=== PATIENT | female | born 1935 | race Asian ===

== ENCOUNTER 2018-09-18 13:58 | Inpatient (IN) | payer OTHER, MEDICARE ==
[2018-09-18] VITALS (21 sets, daily range): BP systolic 87–123; BP diastolic 43–64
[~2018-09-18] VITALS: Ht 157.5 cm; Wt 39.5 kg
--- NOTE | 2018-09-18 14:00 | NUR ---
[id number] FROM [facility], HYPOTENSION 93/65, [place] NS BOLUS GIVEN AT HD, TO ER BED 5, HOOKED TO MONITOR, CHANGED TO GOWN, AWAITING MD HOUSTON
--- NOTE | 2018-09-18 14:05 | NUR ---
DR CAPPS AT BEDSIDE
[2018-09-18] MEDS ORDERED: IV NS 0.9% 500 ML BAG IV ONE (14:30)
[2018-09-18 14:35] LABS: BASOPHILS % (AUTO) 0.2 % (0.0-2.0); EOSINOPHILS % (AUTO) 0.5 % (0.0-6.0); LYMPHOCYTES # (AUTO) 1.3 /CMM (0.8-4.8); LYMPHOCYTES % (AUTO) 7.7 % (20.0-44.0); MEAN CORPUSCULAR HGB CONC 32 g/dl (31.0-36.0); MEAN CORPUSCULAR VOLUME 80 fL (82-100); MONOCYTES # (AUTO) 1.1 /CMM (0.1-1.30); MONOCYTES % (AUTO) 6.6 % (2.0-12.0); NEUTROPHILS # (AUTO) 14.7 /CMM (1.8-8.9); PLATELET COUNT (AUTO) 195 /CMM (150-450); RED BLOOD CELL COUNT(AUTO) 1.49 MIL/uL (4.0-5.2); WHITE BLOOD COUNT (AUTO) 17.3 K/uL (4.3-11.0)
[2018-09-18 14:37] LABS: HEMATOCRIT 12 % (33-45); HEMOGLOBIN 3.8 g/dL (11.5-14.8)
[2018-09-18] MEDS ORDERED: LINA5TAB GT (14:38)
[2018-09-18] MEDS ORDERED: LORA-259 GT ×2 (14:38)
[2018-09-18] MEDS ORDERED: BISA10SU8 RC (14:38)
[2018-09-18] MEDS ORDERED: ACET-868 GT (14:38)
[2018-09-18] MEDS ORDERED: INSU100V7 SQ (14:38)
[2018-09-18] MEDS ORDERED: FERR300L GT (14:38)
[2018-09-18] MEDS ORDERED: FOLI0.8T23 GT (14:38)
[2018-09-18] MEDS ORDERED: METO-295 GT (14:38)
[2018-09-18] MEDS ORDERED: FOLI1TAB16 GT (14:38)
[2018-09-18] MEDS ORDERED: HYDR-4076 GT (14:38)
[2018-09-18] MEDS ORDERED: VALP250C3 GT (14:38)
[2018-09-18] MEDS ORDERED: METO25TA20 GT (14:38)
[2018-09-18] MEDS ORDERED: LANS30CA54 GT (14:38)
[2018-09-18] MEDS ORDERED: VIT500LI GT (14:38)
[2018-09-18] MEDS ORDERED: AMLO5TAB4 GT (14:38)
[2018-09-18] MEDS ORDERED: OLAN5TAB3 GT (14:38)
[2018-09-18] MEDS ORDERED: ACET-2605 GT ×2 (14:38)
[2018-09-18] MEDS ORDERED: NUT.237L67 GT (14:38)
[2018-09-18] MEDS ORDERED: GUAI5SYR GT (14:38)
[2018-09-18] MEDS ORDERED: BLOO-668 IN (14:38)
[2018-09-18] MEDS ORDERED: ONDA4TAB5 GT (14:38)
[2018-09-18] MEDS ORDERED: INSU100V11 SQ (14:38)
[2018-09-18] MEDS ORDERED: SEVE0.8P GT (14:38)
[2018-09-18] MEDS ORDERED: AMIN30LI27 GT (14:38)
[2018-09-18] MEDS ORDERED: DOCU50LI GT (14:38)
[2018-09-18] MEDS ORDERED: IPRA3AMP23 IH (14:38)
[2018-09-18] MEDS ORDERED: ASPI-1169 GT (14:38)
[2018-09-18 14:40] LABS: CALCIUM, SERUM 8.1 mg/dL (8.5-10.1); CARBON DIOXIDE 27 mmol/L (21-32); CHLORIDE 98 mmol/L (98-107); CREATININE 3.1 mg/dL (0.6-1.3); GLUCOSE 135 mg/dL (74-106); POTASSIUM 3.5 mmol/L (3.5-5.1); SODIUM SERUM 133 mmol/L (136-145); UREA NITROGEN, BLOOD 47 mg/dL (7-18)
--- NOTE | 2018-09-18 14:45 | NUR ---
DR DUARTE'S OFFICE WAS CALLED FOR A DR TO DR THACKER
[2018-09-18 14:46] LABS: ALANINE AMINOTRANSFERASE 23 U/L (12-78); ALKALINE PHOSPHATASE 88 U/L (46-116); ASPARTATE AMINOTRANSFERASE 42 U/L (15-37); BILIRUBIN,DIRECT 0.3 mg/dL (0.0-0.2); BILIRUBIN,TOTAL 0.8 mg/dL (0.2-1.0); TOTAL PROTEIN, SERUM 6.4 g/dL (6.4-8.2)
--- NOTE | 2018-09-18 14:48 | NUR ---
URINE SAMPLE SENT TO LAB
--- NOTE | 2018-09-18 14:51 | NUR ---
HOUSE SUP CALLED FOR JAMES BED.
[2018-09-18 15:00] LABS: APPEARANCE,URINE Cloudy (CLEAR); BILIRUBIN,URINE MODERATE (NEGATIVE); BLOOD, URINE Negative Ery/uL (NEGATIVE); KETONES,URINE Trace (NEGATIVE); LEUKOCYTE ESTERASE ,URINE Negative (NEGATIVE); NITRITE, URINE Negative (NEGATIVE); PROTEIN,URINE >=300 mg/dl (NEGATIVE); UGLUCOSE Negative (NEGATIVE); UROBILINOGEN,URINE 0.2 EU/dL (0.2)
[2018-09-18 15:01] LABS: COLOR,URINE Dark Yellow (YELLOW)
[2018-09-18 15:07] LABS: BACTERIA,URINE None seen /HPF (None Seen); HYALINE CASTS, URINE 0-1 /LPF (None Seen); SQUAMOUS EPITHELIAL CELL,UR Few /HPF (None Seen); URINE AMORPHOUS URATE Few /HPF (None Seen); WBC,URINE 0-2 /HPF (0-3)
--- NOTE | 2018-09-18 15:20 | NUR ---
ICU BED GIVEN 260
--- NOTE | 2018-09-18 15:21 | NUR ---
SPOKE TO DAUGHTER ZANE OROSCO AND AGREED VERBALLY FOR BLOOD TRANSFUSION FOR THE PATIENT, WILL COME INTO THE HOSPITAL IN ABOUT AN HOUR. BLOOD TRANSFUSION FORMS SIGNED BY DR CAPPS AND ATTACHED TO CHART.
--- NOTE | 2018-09-18 15:21 | NUR ---
ZANE OROSCO (daughter) [phone]
--- NOTE | 2018-09-18 15:28 | NUR ---
REPORT GIVEN TO ROSA GREEN OF ICU UNIT FOR LINNEA
--- NOTE | 2018-09-18 15:45 | NUR ---
RN NOTES RECEIVED PT FROM ED, IN ROOM 260 ICU STATUS , PT IS ALERT/ CONFUSED, SPEAKS TAGALOG ,ON RA RESPIRATION EVEN AND UNLABORED, O2 SAT 100%, NO SOB NOTED, ON TELE SR HR IN 90'S , R HAND IV SITE G 22 AND L UPPER CHEST HD CATH SITE CLEAN, DRY AND INTACT. ABDOMINAL TUBE INTACT, SITE CLEAN, DRY , MULTIPLIES BRUISING NOTED TO PJ UPPER AND LOWER EXTRIMITES , KEPT CLEAN AND DRY , SR UP x3, CALL LIGHT WITHIN EASY REACH, BED LOCKED AND IN LOWEST POSITION, CONTINUE TO MONITOR .
--- NOTE | 2018-09-18 16:00 | NUR ---
RN NOTES DR HARVEY WILL SEE PT SOON PER ER REPORT
[2018-09-18 17:10] LABS: BAND % (MANUAL) 4 % (0.0-5.0); LYMPHOCYTES % (MANUAL) 8 % (16-48); MONOCYTES % (MANUAL) 9 % (0-11.0); NEUTROPHILS % (MANUAL) 79 (42-76)
[2018-09-18] MEDS ORDERED: FEE PK DOSING 1 MIN EA MC ONE (18:00)
--- NOTE | 2018-09-18 18:00 | NUR ---
RN NOTES NO ADMISSION ORDER YET, DR Ebony HARVEY NOTIFED.
--- NOTE | 2018-09-18 18:06 | NUR ---
RN NOTES BLOOD IS NOT READY PER BLOOD BANK , PT NEEDS SECOND TYPE AND CROSS DRAWING .
--- NOTE | 2018-09-18 18:30 | NUR ---
RN NOTES DR DUARTE ON THE FLOOR SEEING PT
--- NOTE | 2018-09-18 18:43 | NUR ---
RN NOTES FIRST UNIT OF PRBC STARTED , VSS STABLE , CONTINUE TO MONITOR.
[2018-09-18] MEDS ORDERED: BLOOD SUGAR DIAGNOSTIC 1 EACH STRIP IN SCH (19:00)
[2018-09-18] MEDS ORDERED: IV D5/0.45 NACL 1,000 ML IV SCH (19:00)
[2018-09-18] MEDS ORDERED: ONDANSETRON HCL/PF 4 MG/2 ML VIAL IV PRN (19:00)
[2018-09-18] MEDS: PANTOPRAZOLE 40 MG VIAL IV SCH ×2 (19:28→21:00)
[2018-09-18] MEDS ORDERED: VANCOMYCIN 1 GM in IV NS 0.9% 250 ML IV ONE (20:00)
[2018-09-18] MEDS ORDERED: NOREPINEPHRINE 16 MG in IV D5W 500 ML IV PRN (20:00)
--- NOTE | 2018-09-18 20:00 | NUR ---
Received patient resting verbally responsive but confused not following commands.Bilateral soft wrist restraints in place for safety.Respiration even and unlabored.SPO2 100% on RA.SR. GT clamped.NPO status.IV Hydration infusing to MOHAN MIDLINE.Site intact.Left upper chest Nam Cath intact.Per daughter at bedside patient still urinate diaper in place.Patient with low H/H to receive 2 units PRBC,First unit infusing.Turned and repositioned.
[2018-09-18] MEDS: CEFEPIME 1 GM in IV D5W 50 ML IV SCH (20:03)
[2018-09-18] MEDS: BLOOD SUGAR DIAGNOSTIC 1 EACH STRIP IN SCH (23:56)
[2018-09-19] VITALS (58 sets, daily range): BP systolic 111–155; BP diastolic 46–114
--- NOTE | 2018-09-19 01:00 | NUR ---
Patient H/H 3.8/12 .Two Units PRBC transfused without adverse reaction.VS stable.Patient awake but confused.Safety precaution maintained.Call light within easy reach.Bed alarm on.Continue monitoring.
[2018-09-19 04:58] LABS: BASOPHILS % (AUTO) 0.3 % (0.0-2.0); EOSINOPHILS % (AUTO) 0.3 % (0.0-6.0); LYMPHOCYTES # (AUTO) 0.9 /CMM (0.8-4.8); LYMPHOCYTES % (AUTO) 7.8 % (20.0-44.0); MEAN CORPUSCULAR HGB CONC 34 g/dl (31.0-36.0); MEAN CORPUSCULAR VOLUME 78 fL (82-100); MONOCYTES # (AUTO) 0.8 /CMM (0.1-1.30); MONOCYTES % (AUTO) 6.8 % (2.0-12.0); NEUTROPHILS # (AUTO) 9.4 /CMM (1.8-8.9); NEUTROPHILS % (AUTO) 84.8 % (43.0-81.0); PLATELET COUNT (AUTO) 180 /CMM (150-450); RED BLOOD CELL COUNT(AUTO) 2.33 MIL/uL (4.0-5.2); WHITE BLOOD COUNT (AUTO) 11.1 K/uL (4.3-11.0)
[2018-09-19 05:22] LABS: ALANINE AMINOTRANSFERASE 27 U/L (12-78); ALBUMIN 2.8 g/dL (3.4-5.0); ALKALINE PHOSPHATASE 82 U/L (46-116); ASPARTATE AMINOTRANSFERASE 41 U/L (15-37); BILIRUBIN,TOTAL 1.5 mg/dL (0.2-1.0); CALCIUM, SERUM 7.7 mg/dL (8.5-10.1); CARBON DIOXIDE 25 mmol/L (21-32); CHLORIDE 98 mmol/L (98-107); CREATININE 3.3 mg/dL (0.6-1.3); GLUCOSE 124 mg/dL (74-106); POTASSIUM 3.4 mmol/L (3.5-5.1); SODIUM SERUM 134 mmol/L (136-145); TOTAL PROTEIN, SERUM 6.1 g/dL (6.4-8.2); UREA NITROGEN, BLOOD 52 mg/dL (7-18)
[2018-09-19 05:30] LABS: HEMATOCRIT 18 % (33-45); HEMOGLOBIN 6.1 g/dL (11.5-14.8)
[2018-09-19 05:51] LABS: LYMPHOCYTES % (MANUAL) 6 % (16-48); MONOCYTES % (MANUAL) 6 % (0-11.0); NEUTROPHILS % (MANUAL) 88 (42-76)
--- NOTE | 2018-09-19 07:00 | NUR ---
Patient resting in no acute distress.Latest H/H 6.07/28 relayed to Minerva Schultz with orders received to transfuse 2 more units to PRBC.Report given to day shift RN for continuity of care.
--- NOTE | 2018-09-19 07:05 | NUR ---
RN NOTES RECEIVED PT ON BED , ALERT/ CONFUSED, ON RA , RESPIRATION EVEN AND UNLABORED , O2 ZYP138%, NO SOB NOTED, L UPPER CHEST HD CATH AND R UPPER ARM MIDLINE SITE CLEAN, DRY AND INTACT, D51/2NS @30CC/HR RUNNING , SR UP x3, CALL LIGHT WITHIN EASY REACH, BED LOCKED AND IN LOWEST POSITION , CONTINUE TO MONITOR
--- NOTE | 2018-09-19 07:51 | NUR ---
WOUND CARE CONSULT: PT PRESENTS WITH MULTIPLE AREAS OF BRUISING, DRY ESCHAR TO RT ARM AND SCARRING TO BILATERAL BUTTOCKS, PRESENT ON ADMISSION. PT IS EXTREMELY THIN AND BONY WITH FRAGILE SKIN. RECOMMENDATIONS MADE FOR SKIN PROTECTION. DISCUSSED WITH NURSING STAFF. PT ON FIRST STEP [facility]. WILL SEE PRN. BABCOCK IN AGREEMENT WITH PLAN OF CARE. Addendum: 09/19/18 at 0753 by SULMA ANDERSON WNDNU Amended: Links added.
[2018-09-19] MEDS ORDERED: Z GUARD REMEDY 2 OZ OINT TP PRN (08:00)
[2018-09-19] MEDS: BLOOD SUGAR DIAGNOSTIC 1 EACH STRIP IN SCH ×4 (08:07→23:14)
[2018-09-19] MEDS: PANTOPRAZOLE 40 MG VIAL IV SCH ×2 (08:12→20:06)
[2018-09-19] MEDS: Z GUARD REMEDY 2 OZ OINT TP SCH (08:12)
--- NOTE | 2018-09-19 09:00 | NUR ---
RN NOTES DR DUARTE NOTIFIED REGARDING K=3.4 NO NEW ORDER GIVEN .
[2018-09-19] MEDS: CARVEDILOL 3.125 MG TABLET PO SCH ×2 (09:40→20:04)
[2018-09-19] MEDS ORDERED: IV D5/0.45 NACL 1,000 ML IV PRN (09:51)
[2018-09-19] MEDS: NEPRO 1,000 ML BOTTLE GT PRN (11:48)
--- NOTE | 2018-09-19 12:16 | NUR ---
RN NOTE PT RECEIVED THE SECOND UNIT OF PRBC WITH HD , TOLERATED WELL, NO REACTION NOTED, CONTINUE TO MONITOR.
--- NOTE | 2018-09-19 13:00 | NUR ---
RN NOTES PT TOLERATED HD WELL , NO DISTESS NOTED , TF AT 20CC/HR RUNNING VIA GT , NO RESIDUAL NOTED CONTINUE TO MONITOR.
--- NOTE | 2018-09-19 16:00 | NUR ---
RN NOTES TF INCREASED TO 30 CC /HR , NO RESIDUAL NOTED, CONTINUE TO MONITOR.
[2018-09-19] MEDS ORDERED: VANCOMYCIN 500 MG in IV D5W 100 ML IV PRN (18:00)
--- NOTE | 2018-09-19 18:00 | NUR ---
RN NOTES PT IS RESTLESS AND PULLING ON HER GT AND IV LINES , PJ SOFT WRIST RESTRAINS APPLIED FOR PT SAFETY.
--- NOTE | 2018-09-19 18:50 | NUR ---
RN NOTES PT STABLE, TOLERATING TF AT 30CC/HR WELL, NO SIGNFICANT CHANGES NOTED ON THIS SHIFT , WILL ENDORSE TO SPRING FITTER NURSE FOR CONTINUITY OF CARE
--- NOTE | 2018-09-19 19:30 | NUR ---
CULINARY SPECIALIST INITIAL NOTES RECEIVED PATIENT IN BED, AWAKE, ALERT/ CONFUSED, ON RA , RESPIRATION EVEN AND UNLABORED , NO S/S OF RESPIRATORY DISTRESS, NO SOB NOTED, L UPPER CHEST HD CATH AND R UPPER ARM MIDLINE SITE CLEAN, DRY AND INTACT, D51/2NS @30CC/HR RUNNING. TUBE FEEDING NEPRO @ 30ML/HR, TOLERATING WELL, NO GASTRIC RESIDUALS NOTED. SR UP x3, CALL LIGHT WITHIN EASY REACH, BED LOCKED AND IN LOWEST POSITION , CONTINUE TO MONITOR
[2018-09-19] MEDS: CEFEPIME 1 GM in IV D5W 50 ML IV SCH (19:49)
[2018-09-19] MEDS: ATORVASTATIN 40 MG TABLET PO SCH (22:24)
[2018-09-20] VITALS (44 sets, daily range): BP systolic 108–152; BP diastolic 45–82
[2018-09-20 04:40] LABS: BASOPHILS % (AUTO) 0.1 % (0.0-2.0); EOSINOPHILS % (AUTO) 0.4 % (0.0-6.0); HEMATOCRIT 27 % (33-45); HEMOGLOBIN 9.5 g/dL (11.5-14.8); LYMPHOCYTES # (AUTO) 0.6 /CMM (0.8-4.8); LYMPHOCYTES % (AUTO) 7.3 % (20.0-44.0); MEAN CORPUSCULAR HGB CONC 35 g/dl (31.0-36.0); MEAN CORPUSCULAR VOLUME 80 fL (82-100); MONOCYTES # (AUTO) 0.6 /CMM (0.1-1.30); MONOCYTES % (AUTO) 8.2 % (2.0-12.0); NEUTROPHILS # (AUTO) 6.5 /CMM (1.8-8.9); PLATELET COUNT (AUTO) 160 /CMM (150-450); RED BLOOD CELL COUNT(AUTO) 3.37 MIL/uL (4.0-5.2); WHITE BLOOD COUNT (AUTO) 7.7 K/uL (4.3-11.0)
[2018-09-20 05:06] LABS: ALANINE AMINOTRANSFERASE 20 U/L (12-78); ALBUMIN 2.5 g/dL (3.4-5.0); ALKALINE PHOSPHATASE 82 U/L (46-116); ASPARTATE AMINOTRANSFERASE 33 U/L (15-37); BILIRUBIN,TOTAL 1.5 mg/dL (0.2-1.0); CALCIUM, SERUM 7.6 mg/dL (8.5-10.1); CARBON DIOXIDE 29 mmol/L (21-32); CHLORIDE 101 mmol/L (98-107); GLUCOSE 146 mg/dL (74-106); POTASSIUM 3.1 mmol/L (3.5-5.1); SODIUM SERUM 138 mmol/L (136-145); UREA NITROGEN, BLOOD 28 mg/dL (7-18)
[2018-09-20 05:08] LABS: CHOLESTEROL 79 mg/dL (<200); HDL CHOLESTEROL 34 mg/dL (40-60); LDL 39 mg/dL (0-99); TRIGLYCERIDES 102 mg/dL (30-150)
[2018-09-20] MEDS: BLOOD SUGAR DIAGNOSTIC 1 EACH STRIP IN SCH ×3 (05:17→17:13)
--- NOTE | 2018-09-20 06:57 | NUR ---
CLAIMS CONSULTANT CLOSING NOTES PATIENT RESTING IN BED, NO ACUTE CHANGES THROUGHOUT THE SHIFT. NO FEVER OR EPISODES OF HYPOTENSION. WILL ENDORSE THE PATIENT TO THE AM SHIFT NURSE FOR CONTINUITY OF CARE
--- NOTE | 2018-09-20 07:05 | NUR ---
RN NOTES RECEIVED PATIENT IN BED, AWAKE, ALERT/ CONFUSED, ON RA , RESPIRATION EVEN AND UNLABORED , NO S/S OF RESPIRATORY DISTRESS, NO SOB NOTED, L UPPER CHEST HD CATH AND R UPPER ARM MIDLINE SITE CLEAN, DRY AND INTACT, D51/2NS @30CC/HR RUNNING VIA R UPPER ARM MIDLINE , SITE CLEAN , DRY AND INTACT , TUBE FEEDING NEPRO @ 30ML/HR, TOLERATING WELL, NO GASTRIC RESIDUALS NOTED. SR UP x3, CALL LIGHT WITHIN EASY REACH, BED IN LOWEST POSITION AND LOCKED, CONTINUE TO MONITOR.
[2018-09-20] MEDS: PANTOPRAZOLE 40 MG VIAL IV SCH ×2 (08:18→21:38)
[2018-09-20] MEDS: ASCORBIC ACID 500 MG TABLET PO SCH (08:18)
[2018-09-20] MEDS: VIT B CMPLX 3/FA/VIT C/BIOTIN 1 TAB TABLET PO SCH (08:18)
[2018-09-20] MEDS: CARVEDILOL 3.125 MG TABLET PO SCH ×2 (08:26→21:39)
[2018-09-20] MEDS: Z GUARD REMEDY 2 OZ OINT TP SCH (08:27)
--- NOTE | 2018-09-20 09:30 | NUR ---
RN NOTES DR DAVALOS NOTIFIED REGARDING K=3.1 NEW ORDER GIVEN .
[2018-09-20] MEDS: PROSOURCE / PROSTAT (PYXIS) 30 ML UDC GT SCH (09:53)
[2018-09-20] MEDS ORDERED: POTASSIUM CHLORIDE 20 MEQ POWDER PACKET PO ONE (11:00)
[2018-09-20] MEDS ORDERED: POTASSIUM CHLORIDE 20 MEQ TAB.PRT.SR PO ONE (11:00)
--- NOTE | 2018-09-20 13:00 | NUR ---
RN NOTES PT STABLE , TOLERATING TF WELL, CONTINUE TO MONITOR
[2018-09-20 16:05] LABS: OCCULT BLOOD STOOL NEGATIVE (NEGATIVE)
[2018-09-20] MEDS: NEPRO 1,000 ML BOTTLE GT PRN (16:50)
--- NOTE | 2018-09-20 18:00 | NUR ---
RN NOTES IVF D/JOSE PER DR DUARTE , PT STABLE , NO SIGNIFICANT CHANGES NOTED ON THIS SHIFT , WILL ENDORSE TO HEATING AND REFRIGERATION INSPECTOR NURES FOR CONTINUITY OF CARE
--- NOTE | 2018-09-20 19:30 | NUR ---
TAKER OFF DRYING KILN NOTE PT RECEIVED AWAKE WITH NOTED CONFUSION AND RESTLESSNESS. PT SPEAKS TAGALOG. ON ROOM AIR AND SATURATING WELL. DIALYSIS NURSE AT BEDSIDE. VITAL SIGNS WNL. BREATHING REGULAR AND UNLABORED. L SUBCLAVIAN PERMACATH IN PLACE AND IN USE. IV MOHAN MIDLINE CLEAN, DRY AND PATENT. WILL CONTINUE TO MONITOR.
--- NOTE | 2018-09-20 20:30 | NUR ---
HOT SAW OPERATOR NOTE DIALYSIS ENDED. PT AWAKE BUT CONFUSED. 1L TAKEN OUT FROM DIALYSIS. WILL MONITOR.
[2018-09-20] MEDS: ATORVASTATIN 40 MG TABLET PO SCH (21:38)
[2018-09-21] VITALS (7 sets, daily range): BP systolic 125–145; BP diastolic 53–75
[2018-09-21] MEDS: BLOOD SUGAR DIAGNOSTIC 1 EACH STRIP IN SCH ×5 (00:01→23:55)
--- NOTE | 2018-09-21 00:30 | NUR ---
STEAM HEATING INSTALLER NOTE TRANSFERRED PT SAFELY TO ROOM 119-2. GAVE REPORT TO VALENTÍN GREEN FOR CONTINUITY OF CARE.
--- NOTE | 2018-09-21 00:45 | NUR ---
TELE/RN NOTES: RECEIVED PT. VIA BED FROM ICU W/ RN SHARON/CHARGE NURSE . ALERT TO SELF ONLY. SPEAKS TAGALOG . ON TELE MONITOR W/ SR/ST AT TIMES. HAS LCW DIALYSIS CATH. HAD DIALYSIS YESTERDAY W/ 1 L OUT. BR. HAS MULTIPLE BRUISES ON BUE/SACRAL REDNESS. ON NEPRO @ 30 ML/HR TOLERATING WELL W/ NO RESIDUAL NOTED. HAS A MOHAN MIDLINE W/ DRESSING C/D/I W/ NO S/S OF INFECTION/INFILTRATION NOTED. INCONTINENT CARE RENDERED. WILL CONTINUE TO MONITOR.
[2018-09-21 07:12] LABS: BASOPHILS % (AUTO) 0.2 % (0.0-2.0); EOSINOPHILS % (AUTO) 2.4 % (0.0-6.0); HEMATOCRIT 26 % (33-45); HEMOGLOBIN 9.1 g/dL (11.5-14.8); LYMPHOCYTES # (AUTO) 0.5 /CMM (0.8-4.8); LYMPHOCYTES % (AUTO) 6.9 % (20.0-44.0); MEAN CORPUSCULAR HGB CONC 35 g/dl (31.0-36.0); MEAN CORPUSCULAR VOLUME 82 fL (82-100); MONOCYTES # (AUTO) 0.7 /CMM (0.1-1.30); MONOCYTES % (AUTO) 9.4 % (2.0-12.0); NEUTROPHILS # (AUTO) 5.8 /CMM (1.8-8.9); NEUTROPHILS % (AUTO) 81.1 % (43.0-81.0); PLATELET COUNT (AUTO) 159 /CMM (150-450); RED BLOOD CELL COUNT(AUTO) 3.23 MIL/uL (4.0-5.2); WHITE BLOOD COUNT (AUTO) 7.1 K/uL (4.3-11.0)
--- NOTE | 2018-09-21 07:24 | NUR ---
RN/TELE NOTES: REPORT GIVEN TO NEXT SHIFT NURSE FOR LINNEA.
[2018-09-21 07:29] LABS: CALCIUM, SERUM 7.7 mg/dL (8.5-10.1); CARBON DIOXIDE 29 mmol/L (21-32); CHLORIDE 104 mmol/L (98-107); CREATININE 1.8 mg/dL (0.6-1.3); GLUCOSE 158 mg/dL (74-106); POTASSIUM 3.5 mmol/L (3.5-5.1); SODIUM SERUM 139 mmol/L (136-145); UREA NITROGEN, BLOOD 31 mg/dL (7-18)
--- NOTE | 2018-09-21 07:42 | NUR ---
GERIATRIC CARE MANAGER OPENING NOTES RECEIVED BEDSIDE REPORT FROM [facility]. PATIENT SLEEPING ABLE TO AROUSE WITH TOUCH AND VOICE. A/O X1-2 CONFUSED. NO SIGNS OR SYMPTOMS OF RESPIRATORY DISTRESS OR ACUTE PAIN NOTED. GTF RUNNING NEPRO @30 ML/HR TOLERATING WELL NO S/S OF N/V/D. SAFETY PRECAUTIONS IN PLACE BED IN LOW POSITION BILATERAL SOFT WRIST RESTRAINTS CHECKED FOR CIRCULATION. CALL LIGHT WITHIN REACH WILL CONT TO MONITOR
[2018-09-21] MEDS: ASCORBIC ACID 500 MG TABLET PO SCH (09:20)
[2018-09-21] MEDS: PANTOPRAZOLE 40 MG VIAL IV SCH ×2 (09:20→20:48)
[2018-09-21] MEDS: VIT B CMPLX 3/FA/VIT C/BIOTIN 1 TAB TABLET PO SCH (09:20)
[2018-09-21] MEDS: PROSOURCE / PROSTAT (PYXIS) 30 ML UDC GT SCH (09:21)
[2018-09-21] MEDS: CARVEDILOL 3.125 MG TABLET PO SCH ×2 (09:21→20:47)
[2018-09-21] MEDS: Z GUARD REMEDY 2 OZ OINT TP SCH (09:22)
[2018-09-21] MEDS: NEPRO 1,000 ML BOTTLE GT PRN (17:23)
--- NOTE | 2018-09-21 19:26 | NUR ---
RN MS CLOSING NOTES BEDSIDE REPORT GIVEN PATIENT ALERT AND CONFUSED X1 . NO SS OF RESPIRATORY DISTRESS OR ACUTE PAIN. GTF RUNNING TOLERATING WELL. ANURIC WITH 3X LOOSE BM. SAFETY AND ASPIRATION PRECAUTIONS IN PLACE WILL ENDORSE TO NOC
--- NOTE | 2018-09-21 19:50 | NUR ---
RN INITIAL NOTES: RECEIVED REPORT FROM DAY RN. PT IN BED, AWAKE, A/O TO SELF ONLY, TAGALOG SPEAKING, ASKING FOR FOOD STATED SHE'S SO HUNGRY AND HAVENT EATEN ANYTHING FOR COUPLE OF DAYS, REORIENT PT, INFORMED ABOUT GTUBE FEEDING, MOISTEN LIPS AND MOUTH WITH TOOTHED MOIST WITH WATER. MOHAN MIDLINE PATENT AND FLUSHING WELL, ON HL, ALSO IV ACCESS ON RIGHT WRIST PATENT AND FLUSHING WELL, ON HL. PT HAS LEFT CW HD CATH DRESSING C/D/I, NO ACTIVE BLEEDING NOTED. LAST HD WAS 09/20 WITH 1L OUTPUT. SEEN BY MD/DR DUARTE AT BED SIDE, STATED PT MAY DC BACK TO SNF IN AM. PT RECEIVED WITH BILATERAL SOFT WRIST RESTRAINT IN PLACED, NOTED BRUISES ON UPPER AND LOWER EXTREMITIES. BILATERAL RADIAL PULSES PALPABLE, PT ABLE TO MOVE AND WIGGLE ARMS AND HANDS, WITH GOOD CAPILLARY REFILL NOTED. NO S/S OF IMPEDIMENT IN CIRCULATION NOTED. RESTRAINT PROTOCOL FOLLOWED. SAFETY PRECAUTIONS FOR FALL INITAITED, CALL LIGHT IN REACH, BLE OFFLOADED, WILL CONTINUE MONITORING PT.
--- NOTE | 2018-09-21 20:10 | NUR ---
RN NOTES: NOTED PT'S SACRAL/BUTTOCKS/RECTAL AREA TO HAVE OPEN WOUNDS, SCATTERED OPEN WOUNDS, FULL THICKNESS LOSS, WASHED WITH SOAP AND WATER PAT DRY, Z GUARD APPLIED TO PERIWOUND AREA, MEPILEX APPLIED ON SACRAL AREA AND OTHER BONY PROMINENCES, PT ON KCI MATTRESS, WOUND CONSULT OBTAINED, BAGGER MEAT MADE AWARE
--- NOTE | 2018-09-21 20:32 | NUR ---
RN NOTES: GTUBE PATENCY CHECK, GTUBE PATENT AND FLUSHING WELL, NO RESISTANCE, NO RESIDUAL OBTAINED, ABDOMEN SOFT TO TOUCH WITH ACTIVE BOWEL SOUND NOTED UPON AUSCULTATION OF THE ABDOMEN, PT RECEIVING NEPRO AT 30ML/HR.
[2018-09-21] MEDS: ATORVASTATIN 40 MG TABLET PO SCH (21:05)
--- NOTE | 2018-09-21 21:16 | NUR ---
RN NOTES: RIGHT WRIST IV ACCESS NOTED TO BE LEAKING, PT COMPLAINING ITS HURTING, IV ACCESS REMOVED, PRESSURED DRESSING APPLIED
--- NOTE | 2018-09-21 23:55 | NUR ---
BS 146: BS 146 NO INSULIN COVERAGE PER MD, PT RECEIVING GTUBE FEEDING, TOLERATING WELL
[2018-09-22] VITALS: BP 134/74
[2018-09-22 04:00] VITALS: BP 143/70
[2018-09-22] MEDS: BLOOD SUGAR DIAGNOSTIC 1 EACH STRIP IN SCH ×3 (06:02→18:09)
--- NOTE | 2018-09-22 06:35 | NUR ---
RN NOTES: PT REMAINS WITH BILATERAL SOFT WRIST RESTRAINT IN PLACED, GOOD CAPILLARY REFILL NOTED, PT ABLE TO MOVE AND WIGGLE ARMS AND HANDS, BILATERAL RADIAL PULSES PALPABLE INTACT, NO S/S OF IMPEDIMENT IN CIRCULATION NOTED, RESTRAINT PROTOCOL FOLLOWED. WILL CONTINUE MONITORING PT.
--- NOTE | 2018-09-22 06:40 | NUR ---
RN CLOSING NOTES: PT ONGOING HD AT THIS TIME, HD RN AT BED SIDE, IV ACCESS REMAINS PATENT AND FLUSHING WELL, ON HL. GTUBE FEEDING REMAINS INFUSING, TOLERATED WELL BY THE PT. VS REMAINS STABLE, NEEDS ATTENDED. SAFETY PRECAUTIONS FOR FALL REMAINS ENGAGED, CALL LIGHT IN REACH, WILL ENDORSE TO DAY RN FOR LINNEA.
--- NOTE | 2018-09-22 07:30 | NUR ---
RN NOTES: RECEIVED PATIENT IN BED, ASLEEP BUT AROUSABLE TO VERBAL STIMULI A/0X1-2 WITH EPISODES OF CONFUSION, ABLE TO RESPOND APPROPRIATELY BUT EXPRESSES SELF BEST IN TAGALOG, BREATHING EVEN AND UNLABORED ON ROOM AIR. PATIENT DENIES ANY PAIN OF DISCOMFORT, WAS PATIENT ASKING FOR FOOD STATED SHE'S SO HUNGRY BUT PATIENT ON NPO. LEFT CW HD CATH NOTED, DRESSING C/D/I, NO BLEEDING NOTED. IV ACCESS NOTED ON THE MOHAN (MIDLINE) IN PLACE AND INTACT. PATENT AND FLUSHES WELL:HL. PT RECEIVED WITH BILATERAL SOFT WRIST RESTRAINT: REMOVED AND REPLACED, PULSES PALPABLE BILATERALLY, NO SKIN DISCOLORATION/ SKIN BREAKDOWN ON THE SITE, PT ABLE TO MOVE AND WIGGLE ARMS AND HANDS, NO S/S OF IMPEDIMENT IN CIRCULATION NOTED. PATIENT WITH GTF: NEPRO AT 30CC/HR, GT TUBE PLACEMENT CONFIRMED BY AUSCULTATION AND ASPIRATING GASTRIC RESIDUAL, NO GASTRIC RESIDUAL TAKEN ON CHECKING. ASPIRATION AND SAFETY PRECAUTIONS OBSERVED AND MAINTAINED, HOB KEPT ELEVATED, CALL LIGHT WITHIN REACH, WILL CONTINUE TO MONITOR PATIENT .
[2018-09-22 08:00] VITALS: BP_SYST 117; BP_SYST 134; BP_DIAS 63; BP_DIAS 72
--- NOTE | 2018-09-22 08:01 | NUR ---
WOUND CARE CONSULT: PT PRESENTS WITH INCONTINENCE ASSOCIATED SKIN DAMAGE TO PERIANAL AREA AND LOWER BUTTOCKS. PT WAS NOTED TO HAVE BILATERAL BUTTOCK SCARRING ON ADMISSION. SACRUM IS BONY BUT INTACT. RECOMMENDATIONS MADE FOR SKIN PROTECTION AND CARE. DISCUSSED WITH NURSING STAFF. PT ON FIRST STEP [facility]. WILL SEE PRN. BABCOCK IN AGREEMENT WITH PLAN OF CARE. Addendum: 09/22/18 at 0804 by SULMA ANDERSON WNDNU Amended: Links added.
[2018-09-22] MEDS: CARVEDILOL 3.125 MG TABLET PO SCH (09:00)
[2018-09-22] MEDS: ASCORBIC ACID 500 MG TABLET PO SCH (09:11)
[2018-09-22] MEDS: Z GUARD REMEDY 2 OZ OINT TP SCH (09:11)
[2018-09-22] MEDS: PROSOURCE / PROSTAT (PYXIS) 30 ML UDC GT SCH (09:11)
[2018-09-22] MEDS: VIT B CMPLX 3/FA/VIT C/BIOTIN 1 TAB TABLET PO SCH (09:11)
[2018-09-22 09:43] LABS: BASOPHILS % (AUTO) 0.4 % (0.0-2.0); EOSINOPHILS % (AUTO) 2.7 % (0.0-6.0); HEMATOCRIT 29 % (33-45); HEMOGLOBIN 9.7 g/dL (11.5-14.8); LYMPHOCYTES # (AUTO) 0.7 /CMM (0.8-4.8); LYMPHOCYTES % (AUTO) 7.5 % (20.0-44.0); MEAN CORPUSCULAR HGB CONC 34 g/dl (31.0-36.0); MEAN CORPUSCULAR VOLUME 82 fL (82-100); MONOCYTES # (AUTO) 0.9 /CMM (0.1-1.30); MONOCYTES % (AUTO) 9.4 % (2.0-12.0); NEUTROPHILS # (AUTO) 7.5 /CMM (1.8-8.9); PLATELET COUNT (AUTO) 197 /CMM (150-450); RED BLOOD CELL COUNT(AUTO) 3.49 MIL/uL (4.0-5.2); WHITE BLOOD COUNT (AUTO) 9.3 K/uL (4.3-11.0)
[2018-09-22 09:54] LABS: CALCIUM, SERUM 7.9 mg/dL (8.5-10.1); CARBON DIOXIDE 30 mmol/L (21-32); CHLORIDE 104 mmol/L (98-107); CREATININE 1.4 mg/dL (0.6-1.3); GLUCOSE 131 mg/dL (74-106); POTASSIUM 4.1 mmol/L (3.5-5.1); SODIUM SERUM 139 mmol/L (136-145); UREA NITROGEN, BLOOD 35 mg/dL (7-18)
--- NOTE | 2018-09-22 10:00 | NUR ---
RN NOTES PATIENT HAD DIALYSIS TREATMENT TODAY. 1 LITER OUT. PATIENT ABLE TO TOLERATE PROCEDURE WELL
[2018-09-22] MEDS ORDERED: PANTOPRAZOLE 40 MG/PACK PACK GT SCH (11:36)
--- NOTE | 2018-09-22 14:00 | NUR ---
RN NOTES CALLED [facility], SPOKE AND GIVE REPORT TO ADRIANA FOR CONTINUITY OF CARE.
[2018-09-22 16:00] VITALS: BP_SYST 111; BP_SYST 133; BP_DIAS 71; BP_DIAS 76
--- NOTE | 2018-09-22 19:05 | NUR ---
RN NOTES RECEIVED PT IN BED, A/OX1, TAGALOG SPEAKING. NO C/O PAIN AT THIS TIME. ON ROOM AIR, NO SOB NOTED. MOHAN MIDLINE INTACT AND PATENT. LCW HD CATH C/D/I. GT INTACT AND IN PLACED, WITH ONGOING GTF NEPRO AT 30 ML/HR, TOLERATING WELL, HOB ELEVATED. SAFETY MEASURES AND ASPIRATION PRECAUTION IN PLACED. CALL LIGHT WITHIN EASY REACH. WILL CONT TO MONITOR
--- NOTE | 2018-09-22 19:29 | NUR ---
RN NOTES ENDORSED PATIENT FOR CONTINUITY OF CARE. NOT ON ANY FORM OF DISTRESS. NO SIGNIFICANT CHANGES WITHIN THE SHIFT. NO OVERT BLEEDING NOTED. ALL NURSING NEEDS ATTENDED AND MET. SAFETY MEASURES, ASPIRATION PRECAUTION AND IMPLEMENTED AT ALL TIMES. HOB ELEVATED. SIDE RAILS UP. BED LOW AND LOCKED POSITION.CALL LIGHT WITHIN REACH
[2018-09-22 20:00] VITALS: BP 136/75
[2018-09-22 20:05] VITALS: BP 136/75
--- NOTE | 2018-09-22 20:30 | NUR ---
RN NOTES D/C PT TO [facility] TRANSPORTED BY AMBULANCE. D/C INSTRUCTIONS GIVEN TO EMT, REPORT CALLED AND GIVEN TO ADRIANA [facility] LIFE DIRECTOR BY AM NURSE RN. PT IN STABLE CONDITION. MOHAN MIDLINE D/JOSE, PRESSURE DRESSING APPLIED, NO S/SX OF BLEEDING/INFECTION NOTED. GT KEPT INTACT AND IN PLACED. LCW HD CATH C/D/I. SAFETY MEASURES AND ASPIRATION PRECAUTION OBSERVED AT ALL TIMES. D/JOSE
== END 2018-09-22 20:51 | DRG 377 ==
LOC: ER 14:03 → ICU 15:29 → TELE1 09-21 00:15 → MEDSG1 09-21 12:06
PROVIDERS: ADMIT Internal Medicine; ATTEND Internal Medicine
PROC: 05H533Z Insertion of Infusion Device into Right Subclavian Vein, Percutaneous Approach (ICD-10-PCS; principal; 2018-09-18)
PROC: B546ZZA Ultrasonography of Right Subclavian Vein, Guidance (ICD-10-PCS; principal; 2018-09-18)
DX: K92.2 Gastrointestinal hemorrhage, unspecified (principal); I21.A1 Myocardial infarction type 2; R57.1 Hypovolemic shock; N18.6 End stage renal disease; I13.2 Hypertensive heart and chronic kidney disease with heart failure and with stage 5 chronic kidney disease, or end stage renal disease; I50.30 Unspecified diastolic (congestive) heart failure; D62 Acute posthemorrhagic anemia; Z68.1 Body mass index [BMI] 19.9 or less, adult; E11.22 Type 2 diabetes mellitus with diabetic chronic kidney disease; I48.0 Paroxysmal atrial fibrillation; D64.9 Anemia, unspecified; Z93.1 Gastrostomy status; Z99.2 Dependence on renal dialysis; R62.7 Adult failure to thrive; E78.5 Hyperlipidemia, unspecified; F03.90 Unspecified dementia, unspecified severity, without behavioral disturbance, psychotic disturbance, mood disturbance, and anxiety; I25.2 Old myocardial infarction; Z79.4 Long term (current) use of insulin; Z79.82 Long term (current) use of aspirin; Z86.73 Personal history of transient ischemic attack (TIA), and cerebral infarction without residual deficits; Z91.81 History of falling; Z96.649 Presence of unspecified artificial hip joint; R13.10 Dysphagia, unspecified; J44.9 Chronic obstructive pulmonary disease, unspecified; F41.9 Anxiety disorder, unspecified
CPT/HCPCS: 36415; 36569; 71045-TC; 80048-TC; 80053-TC; 80061-TC; 80076-TC; 80202-TC; 81000-TC; 82272-TC; 82962-TC; 83605-TC; 84484-TC; 85025-TC; 85610-TC; 85730-TC; 86850-TC; 86921-TC; 87040-TC; 87081-TC; 87086-TC; 90935-TC; 93307-TC; C9113; G0378; J0692; J3370; J3490; J7040; J7050; J7060; P9016-BL